=== PATIENT | female | born 1995 | race Two or more races ===

== ENCOUNTER 2024-07-06 16:55 | Emergency (ER) | payer MEDICAID, OTHER ==
[2024-07-06] MEDS: ACETAMINOPHEN 500 MG TAB PO ONE (18:41)
[2024-07-06 18:59] LABS: Basophils # (auto) 0.1 10 ^3/uL (0-0.2); Basophils % (auto) 1.3 % (0.0-2.0); Eosinophils # (auto) 0.2 10 ^3/uL (0-0.8); Eosinophils % (auto) 2.5 % (0.0-7.0); Hematocrit 30.6 % (36.0-46.0); Hemoglobin 9.8 g/dL (12.2-16.2); Lymphocytes # (auto) 1.4 10 ^3/uL (0.4-5.4); Mean Corpuscular Hemoglobin 22.3 pg (28.0-32.0); Mean Corpuscular Hgb Conc. 31.9 g/dL (32.0-36.0); Mean Corpuscular Volume 69.9 fL (80.0-100.0); Monocytes # (auto) 0.5 10 ^3/uL (0-1.3); Monocytes % (auto) 5.3 % (0.0-12.0); Neutrophils # (auto) 6.4 10 ^3/uL (1.6-8.6); Neutrophils % (auto) 74.9 % (37.0-80.0); Nucleated Red Blood Cells % 0.1 %; Platelet Count (auto) 215 10^3/uL (140-450); Red Blood Cells 4.38 10^6/uL (4.0-5.20); White Blood Cell 8.6 10^3/uL (4.4-10.8)
[2024-07-06 19:01] LABS: Red Cell Distribution Width 22.1 % (11.8-14.3)
[2024-07-06 19:03] LABS: Urine Bacteria None Seen /hpf (None Seen)
[2024-07-06 19:17] LABS: Alanine Aminotransferase 14 U/L (7-40); Alkaline Phosphatase 62 U/L (46-116); Anion Gap 7 (5-15); Aspartate Aminotransferase 9 U/L (13-40); BUN/Creatinine Ratio 12.7 (10.0-20.0); Blood Urea Nitrogen 9 mg/dL (9-23); Calcium 9.1 mg/dL (8.7-10.4); Carbon Dioxide 22 mmol/L (20-30); Chloride 108 mmol/L (98-107); Glucose 93 mg/dL (74-106); Potassium 3.8 mmol/L (3.5-5.1); Sodium 137 mmol/L (136-145)
[2024-07-06 19:18] LABS: Bilirubin, Total 0.2 mg/dL (0.2-1.0)
[2024-07-06 19:19] LABS: Urine Blood Negative /uL (Negative); Urine Clarity Ex.Turbid (Clear); Urine Color Colorless (Yellow); Urine Mucus FEW (None Seen); Urine Protein, UAD TRACE (Negative); Urine Specific Gravity 1.027 (1.001-1.035); Urine Urobilinogen Normal (Negative); Urine WBC 4 /hpf (0 - 5); Urine pH 5.5 (5.0-9.0)
[2024-07-06] MEDS ORDERED: CEPH500C PO (20:28)
[2024-07-06] MEDS ORDERED: PREN-96 PO (20:28)
[2024-07-06 20:29] VITALS: BP 106/61; PULSE 78; RESP 16; TEMP 98.7; O2SAT 98
== END 2024-07-06 20:33 | disposition home or self-care (01) ==
LOC: ER 16:55
DX: O23.41 Unspecified infection of urinary tract in pregnancy, first trimester (principal); R10.2 Pelvic and perineal pain; O26.891 Other specified pregnancy related conditions, first trimester; R51.9 Headache, unspecified; Z3A.13 13 weeks gestation of pregnancy; Z86.2 Personal history of diseases of the blood and blood-forming organs and certain disorders involving the immune mechanism
CPT/HCPCS: 36415; 76801; 80053; 81001; 84702; 85025; 86850; 86900; 86901